=== PATIENT | female | born 1970 | race Caucasian/White ===

== ENCOUNTER 2021-07-06 12:36 | Outpatient (CLI) | payer BC | END 2021-07-06 12:37 | disposition home or self-care (01) | LOC: ULT 12:36 | PROVIDERS: ATTEND Internal Medicine Nephrology | DX: N18.2 Chronic kidney disease, stage 2 (mild) (principal) | CPT/HCPCS: 76770; 93975 ==

== ENCOUNTER 2021-09-07 13:06 | Outpatient (CLI) | payer BC | END 2021-09-07 13:07 | disposition home or self-care (01) | LOC: BICCT 13:06 | PROVIDERS: ATTEND Specialist | DX: E21.3 Hyperparathyroidism, unspecified (principal) | CPT/HCPCS: 70492; 82565 ==

== ENCOUNTER 2022-05-29 09:56 | Outpatient (CLI) | payer BC | END 2022-05-29 09:57 | disposition home or self-care (01) | LOC: RAD 09:56 | PROVIDERS: ATTEND Urology | DX: N20.0 Calculus of kidney (principal) | CPT/HCPCS: 36415; 74018; 80048; 81001; 82040; 82306; 82570; 83735; 83970; 84100; 84156; 85025 ==